=== PATIENT | female | born 1990 | race Caucasian/White ===

== ENCOUNTER 2019-06-26 14:54 | Emergency (ER) | payer OTHER, SELFPAY ==
[~2019-06-26] VITALS: Ht 165.1 cm; Wt 89.9 kg
--- NOTE | 2019-06-26 15:27 | NUR ---
FIRST CONTACT WITH PT. PT SITTING UP IN [facility], NAD NOTED. PT CO RLQ PAIN ONSET X LAST NIGHT, WORSENING TODAY. +NAUSEA. DENIES VOMITING/PAINFUL URINATION/DIARRHEA. LMP: CURRENT. PT AMBULATED STEADILY TO BATHROOM TO PROVIDE UA.
[2019-06-26] MEDS ORDERED: KETOROLAC 30 MG/1 ML ONE (15:47)
[2019-06-26] MEDS ORDERED: ONDANSETRON 2MG/ML, 2ML ONE (15:47)
--- NOTE | 2019-06-26 15:58 | NUR ---
IV ESTABLISHED. PT MEDICATED PER EMAR FOR NAUSEA AND PAIN Addendum: 06/26/19 at 1632 by LWEGENER CONFIRMED TORADOL ORDER WITH ERP. SERRANO TO GIVE.
[2019-06-26 15:59] VITALS: BP 123/83
[2019-06-26] MEDS ORDERED: SODIUM CHLORIDE FLUSH 10ML SYR IVF ONE (16:00)
[2019-06-26] MEDS ORDERED: KETOROLAC 30 MG/1 ML IVPush ONE (16:00)
[2019-06-26] MEDS ORDERED: PLEASE ENTER ALLERGIES MC SCH (16:00)
[2019-06-26] MEDS ORDERED: ONDANSETRON 2MG/ML, 2ML IVPush ONE (16:00)
[2019-06-26 16:03] LABS: MICROSCOPIC NOT IND
[2019-06-26 16:06] LABS: CULTURE INDICATED? NO
[2019-06-26 16:12] LABS: ALANINE AMINOTRANSFERASE 28 U/L (12-78); ALBUMIN 4.1 g/dL (3.4-5.0); ANION GAP 6 mmol/L (5-15); CALCIUM 9.2 mg/dL (8.5-10.1); CHLORIDE 109 mmol/L (98-107); CREATININE 0.81 mg/dL (0.55-1.02)
[2019-06-26 16:15] LABS: ALKALINE PHOSPHATASE 71 U/L (45-117); BILIRUBIN,TOTAL 0.2 mg/dL (0.2-1.0); TOTAL PROTEIN 7.9 g/dL (6.4-8.2)
--- NOTE | 2019-06-26 16:32 | NUR ---
RETURNED FROM US. NAD NOTED.
[2019-06-26 16:44] LABS: BASOPHILS # (AUTO) 0.07 x10^3/uL (0-0.1); BASOPHILS % (AUTO) 1 % (0-1); EOSINOPHILS # (AUTO) 0.22 x10^3/uL (0-0.4); EOSINOPHILS % (AUTO) 2 % (1-7); LYMPHOCYTES # (AUTO) 2.42 x10^3/uL (1-3.4); LYMPHOCYTES % (AUTO) 27 % (22-44); MD NO; MEAN CORPUSCULAR HEMOGLOBIN 31.5 pg (27.0-34.8); MEAN CORPUSCULAR HGB CONC 33.7 g/dL (32.4-35.8); MEAN CORPUSCULAR VOLUME 93.6 fL (80-100); MEAN PLATELET VOLUME 7.7 fL (7.4-10.4); MONOCYTES # (AUTO) 0.54 x10^3/uL (0.2-0.8); MONOCYTES % (AUTO) 6 % (2-9); NEUTROPHILS # (AUTO) 5.76 x10^3/uL (1.8-6.8); NEUTROPHILS % (AUTO) 64 % (42-75); PLATELET COUNT 396 x10^3/uL (130-400)
--- NOTE | 2019-06-26 17:13 | NUR ---
PT REPORTS LITTLE IMPROVEMENT IN PAIN WITH MEDICATIONS; DENIES NEED FOR FURTHER PAIN MEDICATIONS. DC EDUCATION PROVIDED, PT DEMONSTRATES UNDERSTANDING. PT AMBULATED STEADILY TO DC WITH RN
== END 2019-06-26 17:15 | disposition home or self-care (01) ==
LOC: ED 17:09
DX: R10.31 Right lower quadrant pain (principal); F17.200 Nicotine dependence, unspecified, uncomplicated; R11.0 Nausea
CPT/HCPCS: 36415; 76830; 80053; 81003; 84702; 85025; 96374; 96375; 99284; J1885; J2405